=== PATIENT | male | born 1965 | race Hispanic/Latino ===

== ENCOUNTER 2018-08-14 06:22 | Day surgery (SDC) | payer OTHER ==
[2018-08-13 15:38] VITALS: BP 154/96
[2018-08-13 15:46] LABS: EOSINOPHILS % (AUTO) 1.6 % (0.0-8.0); HEMATOCRIT 46.6 % (42-54); LYMPHOCYTES % (AUTO) 28.2 % (21.0-51.0); MEAN CORPUSCULAR HEMOGLOBIN 32.3 pg (27.0-33.0); MEAN CORPUSCULAR HGB CONC 34.7 g/dL (32.0-36.0); MEAN CORPUSCULAR VOLUME 93.1 fL (79-99); MONOCYTES % (AUTO) 5.7 % (3.0-13.0); NEUTROPHILS % (AUTO) 63.5 % (40.0-77.0); PLATELET COUNT (AUTO) 252 K/uL (130-400); RED BLOOD CELL COUNT(AUTO) 5.01 MIL/uL (4.50-6.20); RED CELL DISTRIBUTION WIDTH 12.8 % (11.0-15.5); WHITE BLOOD COUNT (AUTO) 9.9 K/uL (4.8-10.8)
[2018-08-13 15:52] LABS: POTASSIUM 3.9 mmol/L (3.5-5.1)
[2018-08-14] VITALS (21 sets, daily range): BP systolic 118–196; BP diastolic 75–125
[~2018-08-14] VITALS: Ht 172.7 cm; Wt 86.3 kg
[~2018-08-14 06:22] MED LIST: ENAL10TA PO; GLIP10TA9 PO; METF-446 PO
[2018-08-14] MEDS ORDERED: SODIUM CHLORIDE 0.9% 1000ML 1,000 ML IV ONE (07:28)
[2018-08-14] MEDS: CEFAZOLIN SODIUM 1 GM VIAL ONE ×2 (08:08→09:30)
[2018-08-14] MEDS ORDERED: ENAL20TA PO (08:11)
[2018-08-14] MEDS ORDERED: CLOP75TA14 PO (08:13)
[2018-08-14] MEDS ORDERED: ATOR-2 PO (08:16)
[2018-08-14] MEDS ORDERED: HYDR-4457 PO ×2 (08:18→11:20)
[2018-08-14] MEDS ORDERED: ONDANSETRON HCL 4 MG/2 ML VIAL ONE (08:57)
[2018-08-14] MEDS ORDERED: SUCCINYLCHOLINE 200MG/10ML SYR ONE (08:57)
[2018-08-14] MEDS ORDERED: LIDOCAINE PF 2% 5ML ABBOJECT ONE (08:57)
[2018-08-14] MEDS ORDERED: NEOSTIGMINE 5MG/5ML SYR IV ONE (08:58)
[2018-08-14] MEDS ORDERED: DEXAMETHASONE SOD PHOSPHATE 10MG/ML 1ML VIAL ONE (08:58)
[2018-08-14] MEDS ORDERED: PROPOFOL 10 MG/ML 20ML VIAL IV ONE (08:58)
[2018-08-14] MEDS ORDERED: MIDAZOLAM HCL 1 MG/ML 2ML VIAL ONE (08:58)
[2018-08-14] MEDS ORDERED: ROCURONIUM 10MG/1ML SYR 10 MG/ML ML ONE ×2 (08:58→09:51)
[2018-08-14] MEDS ORDERED: FENTANYL CITRATE PF 50 MCG/1 ML 2ML VIAL ONE ×3 (09:23→10:23)
[2018-08-14] MEDS ORDERED: EPINEPHRINE 1 MG/ML 30ML VIAL IJ ONE (09:28)
[2018-08-14] MEDS ORDERED: EPHEDRINE SULFATE 50 MG/ML AMPULE ONE (09:30)
[2018-08-14] MEDS ORDERED: GLYCOPYRROLATE 1 MG/5 ML SYRINGE ONE (09:52)
[2018-08-14] MEDS ORDERED: PHENYLEPHRINE HCL 10 MG/ML 1ML VIAL IV ONE (10:01)
[2018-08-14] MEDS ORDERED: METOPROLOL TARTRATE 1 MG/ML 5ML VIAL IV ONE (10:18)
[2018-08-14] MEDS ORDERED: CEPH500B PO (11:20)
[2018-08-14] MEDS ORDERED: LABETALOL HCL 5 MG/ML 20ML VIAL IV ONE (11:36)
[2018-08-14] MEDS ORDERED: HYDRALAZINE HCL 20 MG/ML VIAL ONE (12:13)
== END 2018-08-14 13:50 | disposition home or self-care (01) ==
LOC: DAH 06:22
PROVIDERS: ATTEND Orthopaedic Surgery
DX: M75.22 Bicipital tendinitis, left shoulder (principal); M24.112 Other articular cartilage disorders, left shoulder; M75.42 Impingement syndrome of left shoulder; M19.012 Primary osteoarthritis, left shoulder; M65.812 Other synovitis and tenosynovitis, left shoulder; M75.52 Bursitis of left shoulder; E11.42 Type 2 diabetes mellitus with diabetic polyneuropathy; I63.9 Cerebral infarction, unspecified; R97.20 Elevated prostate specific antigen [PSA]; I10 Essential (primary) hypertension; L40.9 Psoriasis, unspecified; F32.9 Major depressive disorder, single episode, unspecified; M54.5 Low back pain; Z98.890 Other specified postprocedural states; Z79.899 Other long term (current) drug therapy; Z79.82 Long term (current) use of aspirin
CPT/HCPCS: 29824; 29826; 36415; 64415; 80048; 82948 ×2; 85025; A4649 ×2; A4930; A6204; J0171; J0330; J0360; J0690; J1100; J2001; J2250; J2370; J2405; J2704; J2710; J3010 ×3; J3490 ×4; J7030 ×2